=== PATIENT | male | born 1990 | race Caucasian/White ===

== ENCOUNTER 2016-12-30 21:07 | Emergency (ER) | payer OTHER ==
[~2016-12-30] VITALS: Ht 167.6 cm; Wt 73.0 kg
[2016-12-30 21:16] VITALS: BP 140/88; PULSE 99; RESP 16; TEMP 98.1; O2SAT 99
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
[2016-12-30] MEDS ORDERED: LIDOCAINE HCL 1% 50 ML VIAL INFIL ONE (21:30)
[2016-12-30] MEDS ORDERED: TETANUS/DIPHTHERIA TOXOID ADULT 0.5 ML VIAL IM ONE (21:30)
[2016-12-30 21:40] LABS: AUTOMATED NEUTROPHIL # 8.2 TH/MM3 (1.8-7.7); BASOPHIL % 0.4 % (0.0-2.0); EOSINOPHIL # 0.3 TH/MM3 (0-0.4); EOSINOPHIL % 2.7 % (0.0-4.0); HEMATOCRIT 46.3 % (39.0-51.0); HEMO FLAGS DIFF FINAL; LYMPH % 19.7 % (9.0-44.0); LYMPHOCYTE # 2.4 TH/MM3 (1.0-4.8); MEAN CELL VOLUME 88.3 FL (80.0-100.0); MEAN CORPUSCULAR HEMOGLOBIN 30.2 PG (27.0-34.0); MEAN CORPUSCULAR HGB CONC 34.2 % (32.0-36.0); MONO % 9.5 % (0.0-8.0); NEUT % 67.7 % (16.0-70.0); PLATELET COUNT 293 TH/MM3 (150-450); RED BLOOD COUNT 5.24 MIL/MM3 (4.50-5.90); RED CELL DISTRIBUTION WIDTH 13.8 % (11.6-17.2)
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
[2016-12-30 22:08] LABS: ACETAMINOPHEN LESS THAN 2.0 MCG/ML (10.0-30.0); ALKALINE PHOSPHATASE 79 U/L (45-117); ALT (GPT) 26 U/L (12-78); ANION GAP 8 MEQ/L (5-15); AST (GOT) 26 U/L (15-37); BLOOD UREA NITROGEN 13 MG/DL (7-18); CHLORIDE 105 MEQ/L (98-107); GLOMERULAR FILTRATION RATE 79 ML/MIN (>89); POTASSIUM 3.4 MEQ/L (3.5-5.1); SODIUM (NA) 138 MEQ/L (136-145); TOTAL BILIRUBIN ADULT 0.7 MG/DL (0.2-1.0)
[2016-12-30 22:09] LABS: ALCOHOL LESS THAN 3 MG/DL (0-5)
[2016-12-30 22:34] VITALS: BP 158/28; PULSE 68; RESP 16; TEMP 97.1; O2SAT 97
[2016-12-31 02:08] VITALS: BP 80/44; PULSE 48; RESP 18; TEMP 96.2; O2SAT 98
[2016-12-31 06:06] VITALS: BP 101/60; PULSE 85; RESP 18
[2016-12-31 09:05] VITALS: BP 101/60
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
--- NOTE | 2016-12-31 09:30 | PD ---
Physical Exam Time Seen by Provider: 09:[address] Barker has evaluated the patient, lifted regressed and the patient will be discharged for follow-up at [facility]. Data Data Last Documented VS Vital Signs Date Time Temp Pulse Resp B/P (MAP) Pulse Ox O2 Delivery O2 Flow Rate FiO2 12/31/16 09:05 85 18 101/60 (74) Blow-by 12/31/16 02:08 96.2 98 Orders Orders Complete Blood Count With Diff (12/30/16:) Comprehensive Metabolic Panel (12/30/16 21:) Psych Screen (12/30/16 21:) Drug Screen, Random Urine (12/30/16:) Alcohol (Ethanol) (12/30/16:) Salicylates (Aspirin) (12/30/16:) Tylenol (Acetaminophen) (12/30/16 21:) Femur (Ap & Lat/2vws) (12/30/16 ) Tetanus/Diphtheria Tox Adult (Tetanus/Di (12/30/16 21:30) Lidocaine 1% Inj (50 Ml) (Xylocaine 1% I (12/30/16 21:30) Diet Regular Basic (12/31/16 Breakfast) Labs Laboratory Tests Test 12/30/16 21:22 White Blood Count 12.0 TH/MM3 Red Blood Count 5.24 MIL/MM3 Hemoglobin 15.8 GM/DL Hematocrit 46.3 % Mean Corpuscular Volume 88.3 FL Mean Corpuscular Hemoglobin 30.2 PG Mean Corpuscular Hemoglobin Concent 34.2 % Red Cell Distribution Width 13.8 % Platelet Count 293 TH/MM3 Mean Platelet Volume 6.8 FL Neutrophils (%) (Auto) 67.7 % Lymphocytes (%) (Auto) 19.7 % Monocytes (%) (Auto) 9.5 % Eosinophils (%) (Auto) 2.7 % Basophils (%) (Auto) 0.4 % Neutrophils # (Auto) 8.2 TH/MM3 Lymphocytes # (Auto) 2.4 TH/MM3 Monocytes # (Auto) 1.1 TH/MM3 Eosinophils # (Auto) 0.3 TH/MM3 Basophils # (Auto) 0.0 TH/MM3 CBC Comment DIFF FINAL Differential Comment Blood Urea Nitrogen 13 MG/DL Creatinine 1.12 MG/DL Random Glucose 91 MG/DL Total Protein 7.9 GM/DL Albumin 4.3 GM/DL Calcium Level 9.3 MG/DL Alkaline Phosphatase 79 U/L Aspartate Amino Transf (AST/SGOT) 26 U/L Alanine Aminotransferase (ALT/SGPT) 26 U/L Total Bilirubin 0.7 MG/DL Sodium Level 138 MEQ/L Potassium Level 3.4 MEQ/L Chloride Level 105 MEQ/L Carbon Dioxide Level 25.0 MEQ/L Anion Gap 8 MEQ/L Estimat Glomerular Filtration Rate 79 ML/MIN Salicylates Level 2.2 MG/DL Urine Opiates Screen NEG Acetaminophen Level LESS THAN 2.0 MCG/ML Urine Barbiturates Screen NEG Urine Amphetamines Screen POS Urine Benzodiazepines Screen POS Urine Cocaine Screen NEG Urine Cannabinoids Screen POS Ethyl Alcohol Level LESS THAN 3 MG/DL MDM Supervised Visit with [facility]: No Narrative Course Dr. Barker has evaluated the patient, lifted the Juda act and the patient will be discharged home. Patient contracts safety. Denies suicidal or homicidal ideations. Patient will be provided community resource packet to [facility] for follow-up. Has friends and family for support. Patient is medically cleared for discharge. Diagnosis Primary Impression: Amphetamine abuse Additional Impressions: Benzodiazepine abuse Cannabis abuse Referrals: Primary Care Physician Patient Instructions: General Instructions, Polysubstance Abuse (ED) Departure Forms: Tests/Procedures Additional Instruction: Contract safety to your self and others Stop using drugs Follow-up with psychiatry Follow-up with primary care provider Follow-up with [facility] Return to the emergency department immediately with worsening of symptoms Med/Other Pt SpecificInfo: No Meds Exist/No RX given Scripts No Active Prescriptions or Reported Meds Disposition: 01 DISCHARGE HOME Condition: Stable Rosalind Jerez Dec 31, 2016 09:30
== END 2016-12-31 10:04 | disposition home or self-care (01) ==
LOC: NEPD 21:07 → NEPJ 12-31 10:04
DX: S71.111A Laceration without foreign body, right thigh, initial encounter (principal); S10.91XA Abrasion of unspecified part of neck, initial encounter; F15.10 Other stimulant abuse, uncomplicated; F12.10 Cannabis abuse, uncomplicated; Z72.0 Tobacco use; Z23 Encounter for immunization; Y28.8XXA Contact with other sharp object, undetermined intent, initial encounter
CPT/HCPCS: 12002; 73552; 80053; 80307; 85025; 90471; 90714

== ENCOUNTER 2017-01-01 08:47 | Emergency (ER) | payer OTHER ==
[~2017-01-01] VITALS: Ht 167.6 cm; Wt 75.0 kg
[2017-01-01 08:57] VITALS: BP 117/83; PULSE 89; RESP 20; TEMP 98.6; O2SAT 99
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
[2017-01-01] MEDS ORDERED: CLINDAMYCIN INJ 900 MG in SODIUM CHLORIDE 0.9% INJ 100 ML IV ONE (09:30)
[2017-01-01 09:47] LABS: AUTOMATED NEUTROPHIL # 8.6 TH/MM3 (1.8-7.7); BASOPHIL # 0.2 TH/MM3 (0-0.2); BASOPHIL % 1.9 % (0.0-2.0); EOSINOPHIL # 0.1 TH/MM3 (0-0.4); HEMATOCRIT 47.2 % (39.0-51.0); HEMO FLAGS DIFF FINAL; LYMPH % 18.1 % (9.0-44.0); LYMPHOCYTE # 2.2 TH/MM3 (1.0-4.8); MEAN CELL VOLUME 89.1 FL (80.0-100.0); MEAN CORPUSCULAR HEMOGLOBIN 30.3 PG (27.0-34.0); MONO % 7.7 % (0.0-8.0); NEUT % 71.3 % (16.0-70.0); PLATELET COUNT 265 TH/MM3 (150-450); RED CELL DISTRIBUTION WIDTH 13.6 % (11.6-17.2)
[2017-01-01 10:03] LABS: ALT (GPT) 28 U/L (12-78); ANION GAP 8 MEQ/L (5-15); BICARBONATE 24.3 MEQ/L (21.0-32.0); BLOOD UREA NITROGEN 18 MG/DL (7-18); CHLORIDE 108 MEQ/L (98-107); GLOMERULAR FILTRATION RATE 61 ML/MIN (>89); POTASSIUM 4.1 MEQ/L (3.5-5.1); SODIUM (NA) 140 MEQ/L (136-145)
[2017-01-01 11:14] LABS: ALKALINE PHOSPHATASE 82 U/L (45-117); AST (GOT) 30 U/L (15-37)
[2017-01-01 11:15] LABS: ACETAMINOPHEN LESS THAN 2.0 MCG/ML (10.0-30.0)
[2017-01-01 11:23] LABS: BACTERIA, URINE RARE /hpf; BLOOD, URINE TRACE (NEG); COMMENT (UR) CULTURE INDICATED; CULTURE IF INDICATED CULTURE INDICATED; GLUCOSE,URINE NEG (NEG); KETONE, URINE TRACE mg/dL (NEG); MUCUS URINE MANY /lpf (OCC); NITRITE,URINE NEG (NEG); URINE COLOR DARK-YELLOW (YELLW/STRAW)
--- NOTE | 2017-01-01 11:23 | RADRPT ---
EXAM DATE/TIME: 01/01/2017 11:01 [facility] COMPARISON: No previous studies available for comparison. INDICATIONS : Cephalgia. RADIATION DOSE: 31.60 CTDIvol (mGy) MEDICAL HISTORY : None SURGICAL HISTORY : None. ENCOUNTER: Initial ACUITY: 1 day PAIN SCALE: 4/10 LOCATION: Bilateral cranial TECHNIQUE: Multiple contiguous axial images were obtained of the head. Using automated exposure control and adj ustment of the mA and/or kV according to patient size, radiation dose was kept as low as reasonably a chievable to obtain optimal diagnostic quality images. DICOM format image data is available electro nically for review and comparison. FINDINGS: CEREBRUM: The ventricles are normal for age. No evidence of midline shift, mass lesion, hemorrhage or acute in farction. No extra-axial fluid collections are seen. POSTERIOR FOSSA: The cerebellum and brainstem are intact. The 4th ventricle is midline. The cerebellopontine angle i s unremarkable. EXTRACRANIAL: The visualized portion of the orbits is intact. Left maxillary sinusitis. SKULL: The calvaria is intact. No evidence of skull fracture. CONCLUSION: 1. Left maxillary sinusitis. 2. Otherwise negative Bernard Longo MD on January 01, 2017 at 11:20 Board Certified Radiologist. This report was verified electronically.
[2017-01-01] MEDS ORDERED: cefTRIAXone INJ 1,000 MG in SODIUM CHLORIDE 0.9% INJ 100 ML IV ONE (11:30)
[2017-01-01] MEDS ORDERED: metroNIDAZOLE 500 MG TAB PO ONE (11:30)
--- NOTE | 2017-01-01 11:50 | RADRPT ---
EXAM DATE/TIME: 01/01/2017 11:16 [facility] COMPARISON: No previous studies available for comparison. INDICATIONS : Right hand pain after punching the cement today. MEDICAL HISTORY : None. SURGICAL HISTORY : None. ENCOUNTER: Initial ACUITY: 1 day PAIN SCORE: 2/10 LOCATION: Right MCPJ. FINDINGS: Two view examination of the right hand demonstrates no soft tissue swelling, dislocation, or fracture . The joint spaces are maintained. Bony mineralization is normal. CONCLUSION: 1. No acute findings. Rizwan Gerard MD on January 01, 2017 at 11:47 Board Certified Radiologist. This report was verified electronically.
[2017-01-01 12:09] LABS: ALCOHOL LESS THAN 3 MG/DL (0-5)
[2017-01-01 13:00] VITALS: BP 117/58; PULSE 88; RESP 18; O2SAT 100
[2017-01-01 14:15] VITALS: BP 112/63; PULSE 80; RESP 18; O2SAT 100
[2017-01-01 17:24] VITALS: BP 111/62; PULSE 80; RESP 18; O2SAT 100
[2017-01-01 22:34] VITALS: BP 92/55; PULSE 74; RESP 18; O2SAT 99
[2017-01-02 06:39] VITALS: BP 98/58; PULSE 77; RESP 18; O2SAT 96
[2017-01-02 10:50] VITALS: BP 117/72; PULSE 77; RESP 18
== END 2017-01-02 15:36 ==
LOC: NEPD 08:47 → NEPJ 01-02 15:36
DX: N39.0 Urinary tract infection, site not specified (principal); Z72.0 Tobacco use
CPT/HCPCS: 70450; 73120; 80053; 80307; 81001; 85025; 87086; 96365; 96367; 99285; J0696

== ENCOUNTER 2017-07-30 16:14 | Inpatient (IN) | payer OTHER ==
[~2017-07-30] VITALS: Ht 167.6 cm; Wt 82.0 kg
[~2017-07-30 16:14] MED LIST: GLYCOPYRROLATE 1 MG/5 ML SYRINGE IV PUSH ONE; LACTATED RINGER'S 1000 ML INJ 1,000 ML IV ONE; LIDOCAINE HCL 1% PF 5 ML SYRINGE OTHER ONE; NEOSTIGMINE 5 MG/5 ML SYRINGE IV PUSH ONE; ONDANSETRON HCL 4 MG/2 ML VIAL IV ONE; PROPOFOL 200 MG/20 ML AMP IV ONE; ROCURONIUM INJ 50 MG/5 ML SYRINGE IV PUSH ONE; SUCCINYLCHOLINE CHLORIDE 100 MG/5 ML SYRINGE IV PUSH ONE; ceFAZolin INJ 1,000 MG VIAL IV ONE
[2017-07-30 16:48] VITALS: BP 127/69; PULSE 81; RESP 16; TEMP 98.2; O2SAT 96
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
--- NOTE | 2017-07-30 17:23 | RADRPT ---
EXAM DATE/TIME: 07/30/2017 17:01 [facility] COMPARISON: No previous studies available for comparison. INDICATIONS : Evaluate left distal forearm for foreign, cut with broken ceramic MEDICAL HISTORY : Stroke. SURGICAL HISTORY : None. ENCOUNTER: Initial ACUITY: 1 day PAIN SCORE: 3/10 LOCATION: Left Forearm FINDINGS: Two view examination of the left forearm demonstrates soft tissue deformity along the volar and later al surface of the mid to distal forearm.. There is no evidence of radiopaque foreign body. Underlying bony structures are intact. CONCLUSION: Soft tissue injury without evidence of radiopaque foreign body or acute bony abnormalities. Rommel Jean MD on July 30, 2017 at 17:19 Board Certified Radiologist. This report was verified electronically.
[2017-07-30] MEDS ORDERED: SODIUM CHLOR 0.9% 1000 ML INJ 1,000 ML IV ONE ×2 (17:30)
[2017-07-30 17:36] LABS: AUTOMATED NEUTROPHIL # 10.2 TH/MM3 (1.8-7.7); BASOPHIL % 0.3 % (0.0-2.0); EOSINOPHIL # 0.2 TH/MM3 (0-0.4); EOSINOPHIL % 1.3 % (0.0-4.0); HEMATOCRIT 46.6 % (39.0-51.0); HEMOGLOBIN 16.1 GM/DL (13.0-17.0); LYMPH % 14.1 % (9.0-44.0); LYMPHOCYTE # 1.9 TH/MM3 (1.0-4.8); MEAN CELL VOLUME 91.7 FL (80.0-100.0); MEAN CORPUSCULAR HEMOGLOBIN 31.6 PG (27.0-34.0); MEAN CORPUSCULAR HGB CONC 34.5 % (32.0-36.0); MEAN PLATELET VOLUME 7.5 FL (7.0-11.0); MONO % 7.2 % (0.0-8.0); NEUT % 77.1 % (16.0-70.0); PLATELET COUNT 186 TH/MM3 (150-450); RED BLOOD COUNT 5.09 MIL/MM3 (4.50-5.90); RED CELL DISTRIBUTION WIDTH 13.6 % (11.6-17.2); WHITE BLOOD COUNT 13.3 TH/MM3 (4.0-11.0)
[2017-07-30 17:54] LABS: PROTHROMBIN TIME - PATIENT 10.3 SEC (9.8-11.6)
[2017-07-30] MEDS ORDERED: BUPIVACAINE HCL PF 0.5% 30 ML VIAL ONE (18:05)
[2017-07-30] MEDS ORDERED: LIDOCAINE HCL 2% 50 ML VIAL ONE (18:05)
[2017-07-30] MEDS ORDERED: BACITRACIN TOP OINT 15 GM TUBE ONE (18:05)
[2017-07-30 18:06] LABS: ALKALINE PHOSPHATASE 56 U/L (45-117); TOTAL BILIRUBIN ADULT 0.5 MG/DL (0.2-1.0); TOTAL PROTEIN 7.9 GM/DL (6.4-8.2)
[2017-07-30] MEDS ORDERED: NEOMYCIN/POLYMYXIN 1 ML G.U. IRRIGANT ONE (18:06)
[2017-07-30 18:07] LABS: ALBUMIN 4.4 GM/DL (3.4-5.0); ALT (GPT) 40 U/L (12-78); AST (GOT) 34 U/L (15-37); BICARBONATE 25.6 MEQ/L (21.0-32.0); BLOOD UREA NITROGEN 20 MG/DL (7-18); CALCIUM 9.1 MG/DL (8.5-10.1); CHLORIDE 111 MEQ/L (98-107); CREATININE 0.93 MG/DL (0.60-1.30); GLOMERULAR FILTRATION RATE 97 ML/MIN (>89); GLUCOSE,RANDOM 85 MG/DL (74-106); SODIUM (NA) 142 MEQ/L (136-145)
[2017-07-30] MEDS ORDERED: SODIUM CHLORIDE 0.9% FLUSH 10 ML FLUSH IV FLUSH PRN ×2 (18:45)
[2017-07-30] MEDS ORDERED: LACTULOSE SYRUP 20 GM/30 ML CUP PO PRN (18:45)
[2017-07-30] MEDS ORDERED: MAGNESIUM HYDROXIDE SUSP 30 ML CUP PO PRN (18:45)
[2017-07-30] MEDS ORDERED: SENNOSIDES 8.6 MG TAB PO PRN (18:45)
[2017-07-30] MEDS ORDERED: TETANUS/DIPHTHERIA TOXOID ADULT 0.5 ML VIAL IM ONE (18:45)
[2017-07-30] MEDS ORDERED: METOCLOPRAMIDE HCL 10 MG/2 ML VIAL IV PUSH PRN (18:45)
[2017-07-30] MEDS ORDERED: BISACODYL 10 MG SUPP RECTAL PRN (18:45)
[2017-07-30] MEDS ORDERED: oxyCODONE/ACETAMINOPHEN 10 MG/325 MG TAB PO PRN (18:45)
[2017-07-30] MEDS ORDERED: MORPHINE SULFATE 2 MG/ML SYRINGE IV PUSH PRN (18:45)
[2017-07-30] MEDS ORDERED: oxyCODONE/ACETAMINOPHEN 5 MG/325 MG TAB PO PRN (18:45)
[2017-07-30] MEDS ORDERED: MORPHINE SULFATE 4 MG/ML INJ IV PUSH PRN ×2 (18:45)
[2017-07-30] MEDS ORDERED: ACETAMINOPHEN 325 MG TAB PO PRN ×2 (18:45)
[2017-07-30] MEDS ORDERED: NALOXONE HCL 0.4 MG/ML AMP IV PUSH PRN (18:45)
[2017-07-30] MEDS ORDERED: ONDANSETRON HCL 4 MG/2 ML VIAL IVP PRN (18:45)
[2017-07-30 19:08] VITALS: BP 120/64; PULSE 73; RESP 18; O2SAT 97
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
[2017-07-30] MEDS ORDERED: ceFAZolin INJ 1,000 MG VIAL IV ONE (20:00)
[2017-07-30] MEDS: DOCUSATE SODIUM 50 MG/SENNA 8.6 MG TAB PO SCH (21:00)
[2017-07-30] MEDS ORDERED: SODIUM CHLORIDE 0.9% FLUSH 10 ML FLUSH IV FLUSH SCH (21:00)
[2017-07-30] MEDS ORDERED: MIDAZOLAM HCL 2 MG/2 ML VIAL ONE (21:03)
[2017-07-30] MEDS ORDERED: DO NOT ADM ANY ANTICOAGULANT DRUGS PRN (21:41)
--- NOTE | 2017-07-30 21:44 | PD.OP ---
Operative Report Preoperative Diagnosis: (1) Laceration of left forearm with tendon involvement Postoperative Diagnosis: (1) Laceration of left forearm (2) laceration flexor carpi radialis left forearm (3) laceration palmaris longus left forearm (4) laceration flexor digitorum superficialis middle and ring fingers left forearm (5) laceration flexor carpi ulnaris left forearm Procedure: exploration, repair of laceration left forearm and repair of 1. laceration flexor carpi radialis 2. laceration palmaris longus 3. laceration flexor digitorum superficialis middle and ring fingers 4. laceration flexor carpi ulnaris Anesthesia: general Surgeon: Nguyễn Ortiz Cloth Tearer(s): pamela Operation and Findings: oblique laceration over the mid forearm measuring 8-9 cms complete laceration of FCR, PL, FDS middle and ring fingers partial laceration FCU intact ulnar artery and nerve intact median nerve Nguyễn Ortiz MD Jul 30, 2017 21:44
[2017-07-30] MEDS: SODIUM CHLORIDE 0.9% FLUSH 10 ML FLUSH IV FLUSH SCH (22:00)
[2017-07-30] MEDS ORDERED: ceFAZolin 2 GM/DEX PREMIX 50 ML IV ONE (22:00)
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
[2017-07-30] MEDS: SODIUM CHLOR 0.9% 1000 ML INJ 1,000 ML IV SCH (22:35)
[2017-07-30 23:30] VITALS: BP 129/73; PULSE 92; RESP 20; TEMP 97.6; O2SAT 98
[2017-07-31] MEDS: SODIUM CHLOR 0.9% 1000 ML INJ 1,000 ML IV SCH ×2 (04:29→07:36)
[2017-07-31 07:32] VITALS: BP 114/63; PULSE 66; RESP 20; TEMP 97.7; O2SAT 97
[2017-07-31] MEDS: SODIUM CHLORIDE 0.9% FLUSH 10 ML FLUSH IV FLUSH SCH ×2 (07:35→20:54)
[2017-07-31] MEDS: DOCUSATE SODIUM 50 MG/SENNA 8.6 MG TAB PO SCH ×2 (07:35→20:54)
[2017-07-31 07:42] LABS: AUTOMATED NEUTROPHIL # 6.6 TH/MM3 (1.8-7.7); BASOPHIL % 0.2 % (0.0-2.0); EOSINOPHIL # 0.2 TH/MM3 (0-0.4); EOSINOPHIL % 2.3 % (0.0-4.0); HEMATOCRIT 41.7 % (39.0-51.0); HEMOGLOBIN 14.3 GM/DL (13.0-17.0); LYMPH % 21.4 % (9.0-44.0); LYMPHOCYTE # 2.1 TH/MM3 (1.0-4.8); MEAN CELL VOLUME 92.6 FL (80.0-100.0); MEAN CORPUSCULAR HEMOGLOBIN 31.6 PG (27.0-34.0); MEAN CORPUSCULAR HGB CONC 34.1 % (32.0-36.0); MEAN PLATELET VOLUME 7.5 FL (7.0-11.0); MONO % 9.4 % (0.0-8.0); MONOCYTE # 0.9 TH/MM3 (0-0.9); NEUT % 66.7 % (16.0-70.0); PLATELET COUNT 161 TH/MM3 (150-450); RED BLOOD COUNT 4.51 MIL/MM3 (4.50-5.90); RED CELL DISTRIBUTION WIDTH 13.3 % (11.6-17.2); WHITE BLOOD COUNT 9.8 TH/MM3 (4.0-11.0)
[2017-07-31 08:15] LABS: ALBUMIN 3.3 GM/DL (3.4-5.0); ALKALINE PHOSPHATASE 48 U/L (45-117); ALT (GPT) 30 U/L (12-78); AST (GOT) 21 U/L (15-37); BICARBONATE 23.8 MEQ/L (21.0-32.0); BLOOD UREA NITROGEN 15 MG/DL (7-18); CALCIUM 8.2 MG/DL (8.5-10.1); CHLORIDE 111 MEQ/L (98-107); CREATININE 0.79 MG/DL (0.60-1.30); FREE T4 1.04 NG/DL (0.76-1.46); GLOMERULAR FILTRATION RATE 118 ML/MIN (>89); GLUCOSE,RANDOM 83 MG/DL (74-106); MAGNESIUM 1.9 MG/DL (1.5-2.5); PHOSPHORUS 3.3 MG/DL (2.5-4.9); SODIUM (NA) 143 MEQ/L (136-145); TOTAL BILIRUBIN ADULT 0.5 MG/DL (0.2-1.0); TOTAL PROTEIN 6.1 GM/DL (6.4-8.2)
[2017-07-31] MEDS ORDERED: ACETAMINOPHEN 500 MG CPLT PO PRN (10:45)
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
[2017-07-31] MEDS: oxyCODONE/ACETAMINOPHEN 7.5 MG/325 MG TAB PO PRN ×2 (11:30→17:20)
[2017-07-31 12:31] VITALS: BP_SYST 109; BP_SYST 133; BP_DIAS 62; BP_DIAS 79; PULSE 68; PULSE 98; RESP 20; TEMP 97.9; TEMP 98.3; O2SAT 97
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
[2017-07-31 15:44] VITALS: BP 103/51; PULSE 68; RESP 20; TEMP 98.2; O2SAT 97
--- NOTE | 2017-07-31 16:28 | HHI.PR ---
Subjective Remarks complains of mild pain denies any tingling or numbness complaint with limb elevation Objective Vital Signs Date Time Temp Pulse Resp B/P (MAP) Pulse Ox O2 Delivery O2 Flow Rate FiO2 07/31/17 15:44 98.2 68 20 103/51 (68) 97 07/31/17 12:31 98.3 98 20 133/79 (97) 97 07/31/17 07:32 97.7 66 20 114/63 (80) 97 07/30/17 23:30 97.6 92 20 129/73 (91) 98 07/30/17 23:00 98.0 82 20 132/65 (87) 98 Nasal Cannula 2 07/30/17 22:45 83 16 135/69 (91) 98 Nasal Cannula 2 07/30/17 22:30 84 26 128/68 (88) 95 Nasal Cannula 3 07/30/17 22:15 82 30 127/67 (87) 97 Nasal Cannula 3 07/30/17 22:00 77 26 116/62 (80) 97 Nasal Cannula 10 07/30/17 21:45 82 25 107/59 (75) 97 Nasal Cannula 10 07/30/17 21:41 98.0 88 20 108/56 (73) 97 Nasal Cannula 10 07/30/17 19:34 07/30/17 19:08 73 18 120/64 (82) 97 Room Air 07/30/17 16:48 98.2 81 16 127/69 (88) 96 I/O 07/30/17 07/30/17 07/30/17 07/31/17 07/31/17 07/31/17 07:00 15:00 23:00 07:00 15:00 23:00 Intake Total 1350 ml 800 ml 720 ml Output Total 20 ml 700 ml Balance 1330 ml 100 ml 720 ml Intake Oral 0 ml 800 ml 720 ml IV Total 1350 ml Output Urine Total 0 ml 700 ml Estimated Blood Loss 20 ml # Voids 2 # Bowel Movements 0 Left upper extremity: dressing and splint in place able to actively flex the fingers intact distal sensation Result Diagram: 07/31/17 0530 07/31/17 0530 Assessment and Plan Assessment and Plan 27 year old male s/p repair flexor tendons left forearm POD 1 Plan: keep the part elevated watch for distal circulation observation in medical floor for another day. appreciate Psychiatry input hand surgery will follow. Eathirafarhana,Nguyễn MD Jul 31, 2017 16:28
[2017-07-31 20:00] VITALS: BP 123/77; PULSE 77; RESP 18; TEMP 97.3; O2SAT 97
[2017-08-01] MEDS: SODIUM CHLOR 0.9% 1000 ML INJ 1,000 ML IV SCH ×3 (00:04→22:08)
[2017-08-01] MEDS: oxyCODONE/ACETAMINOPHEN 7.5 MG/325 MG TAB PO PRN ×3 (01:53→15:56)
[2017-08-01 08:20] VITALS: BP 109/64; PULSE 67; RESP 20; TEMP 97.8; O2SAT 97
[2017-08-01] MEDS: SODIUM CHLORIDE 0.9% FLUSH 10 ML FLUSH IV FLUSH SCH ×2 (09:00→22:07)
[2017-08-01] MEDS: DOCUSATE SODIUM 50 MG/SENNA 8.6 MG TAB PO SCH ×2 (09:25→21:00)
[2017-08-01 11:23] VITALS: BP 111/56; PULSE 62; RESP 20; TEMP 98.4; O2SAT 97
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
[2017-08-01 16:00] VITALS: BP 117/61; PULSE 71; RESP 20; TEMP 98.3; O2SAT 98
[2017-08-01 20:15] VITALS: BP 135/62; PULSE 66; RESP 18; TEMP 98; O2SAT 98
[2017-08-02 01:30] VITALS: BP 105/56; PULSE 58; RESP 17; TEMP 97.9; O2SAT 97
[2017-08-02] MEDS: oxyCODONE/ACETAMINOPHEN 7.5 MG/325 MG TAB PO PRN ×4 (01:34→22:00)
[2017-08-02 03:15] VITALS: BP 108/54; PULSE 50; RESP 17; TEMP 98.1; O2SAT 98
[2017-08-02] MEDS: SODIUM CHLOR 0.9% 1000 ML INJ 1,000 ML IV SCH (07:15)
[2017-08-02] MEDS: SODIUM CHLORIDE 0.9% FLUSH 10 ML FLUSH IV FLUSH SCH ×2 (09:00→21:00)
[2017-08-02] MEDS: DOCUSATE SODIUM 50 MG/SENNA 8.6 MG TAB PO SCH ×2 (09:00→20:51)
[2017-08-02 09:39] VITALS: BP 110/53; PULSE 54; RESP 20; TEMP 98.2; O2SAT 98
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
[2017-08-02 11:28] VITALS: BP 124/59; PULSE 62; RESP 20; TEMP 98.2; O2SAT 97
[2017-08-02] MEDS ORDERED: ZOFR4TAB3 SL (12:24)
[2017-08-02] MEDS ORDERED: OXYC1TAB35 PO (12:24)
[2017-08-02] MEDS ORDERED: ACET500T13 PO (12:24)
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
[2017-08-02 15:49] VITALS: BP 116/53; PULSE 50; RESP 20; TEMP 98.3; O2SAT 95
[2017-08-02 20:00] VITALS: BP 115/70; PULSE 78; RESP 16; TEMP 98.3; O2SAT 98
[2017-08-02] MEDS ORDERED: TETANUS/DIPHTHERIA TOXOID ADULT 0.5 ML VIAL IM ONE (22:00)
[2017-08-03] VITALS: BP 128/68; PULSE 67; RESP 18; TEMP 98.3; O2SAT 100
[2017-08-03 04:00] VITALS: BP 115/58; PULSE 51; RESP 16; TEMP 97.8; O2SAT 97
[2017-08-03] MEDS: oxyCODONE/ACETAMINOPHEN 7.5 MG/325 MG TAB PO PRN ×2 (05:37→12:53)
[2017-08-03] MEDS: DOCUSATE SODIUM 50 MG/SENNA 8.6 MG TAB PO SCH (07:30)
[2017-08-03] MEDS: SODIUM CHLORIDE 0.9% FLUSH 10 ML FLUSH IV FLUSH SCH (07:30)
[2017-08-03 08:42] VITALS: BP 112/53; PULSE 53; RESP 16; TEMP 98.3; O2SAT 98
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
[2017-08-03 12:00] VITALS: BP 121/74; PULSE 50; RESP 18; TEMP 98.1; O2SAT 98
[2017-08-03 14:00] VITALS: RESP 16
--- NOTE | 2017-08-03 16:12 | HHI.PR ---
Subjective Remarks complains of mild pain denies any tingling or numbness complaint with limb elevation Objective Vital Signs Date Time Temp Pulse Resp B/P (MAP) Pulse Ox O2 Delivery O2 Flow Rate FiO2 08/03/17 14:00 16 08/03/17 12:00 98.1 50 18 121/74 (90) 98 08/03/17 08:42 98.3 53 16 112/53 (72) 98 08/03/17 04:00 97.8 51 16 115/58 (77) 97 08/03/17 00:00 98.3 67 18 128/68 (88) 100 08/02/17 20:00 98.3 78 16 115/70 (85) 98 I/O 08/02/17 08/02/17 08/02/17 08/03/17 08/03/17 08/03/17 07:00 15:00 23:00 07:00 15:00 23:00 Intake Total 1500 ml 600 ml Balance 1500 ml 600 ml Intake Oral 1500 ml 600 ml # Voids 4 2 # Bowel Movements 0 1 left upper extremity: intact dressing and splint laceration site clean and dry intact finger cascade intact sensation and circulation Result Diagram: 07/31/17 0530 07/31/17 0530 Assessment and Plan Assessment and Plan 27 year old male s/p repair flexor tendons left forearm POD 4 Plan: dry dressing applied new dorsal block splint applied keeping the wrist in flexion and MP joints in flexion watch for distal circulation and sensation keep the splint on. staple removal in 2 weeks time. follow up in office in 2 weeks, call [phone] for appointment. Nguyễn Ortiz MD Aug 03, 2017 16:12
== END 2017-08-03 15:15 | DRG 501 ==
LOC: HOR 16:14 → NEDA 18:36 → HPAC 19:38 → N05A 23:24
PROVIDERS: ADMIT Hospitalist; ATTEND Hospitalist
PROC: 0LQ83ZZ Repair Left Hand Tendon, Percutaneous Approach (ICD-10-PCS; 2017-07-30)
PROC: 0LQ Tendons, Repair (ICD-10-PCS; principal; 2017-07-30 19:36)
DX: S56.222A Laceration of other flexor muscle, fascia and tendon at forearm level, left arm, initial encounter (principal); S46.122A Laceration of muscle, fascia and tendon of long head of biceps, left arm, initial encounter; D72.829 Elevated white blood cell count, unspecified; F31.9 Bipolar disorder, unspecified; S61.213A Laceration without foreign body of left middle finger without damage to nail, initial encounter; S56.126A Laceration of flexor muscle, fascia and tendon of left ring finger at forearm level, initial encounter; S56.124A Laceration of flexor muscle, fascia and tendon of left middle finger at forearm level, initial encounter; Z91.048 Other nonmedicinal substance allergy status; X79.XXXA Intentional self-harm by blunt object, initial encounter
CPT/HCPCS: 73090; 80053; 80307; 83036; 83735; 84100; 84439; 84443; 85025; 85610; 85730; 90714; 96374; J0330; J0690; J2250; J2270; J2405; J2710; J3010; J7030; J7120

== ENCOUNTER 2017-08-03 11:19 | Inpatient (IN) | payer SELFPAY ==
[~2017-08-03] VITALS: Ht 167.6 cm; Wt 81.2 kg
[~2017-08-03 11:19] MED LIST changes: +ACET500T13 PO; -GLYCOPYRROLATE 1 MG/5 ML SYRINGE IV PUSH ONE; -LACTATED RINGER'S 1000 ML INJ 1,000 ML IV ONE; -LIDOCAINE HCL 1% PF 5 ML SYRINGE OTHER ONE; -NEOSTIGMINE 5 MG/5 ML SYRINGE IV PUSH ONE; -ONDANSETRON HCL 4 MG/2 ML VIAL IV ONE; +OXYC1TAB35 PO; -PROPOFOL 200 MG/20 ML AMP IV ONE; -ROCURONIUM INJ 50 MG/5 ML SYRINGE IV PUSH ONE; -SUCCINYLCHOLINE CHLORIDE 100 MG/5 ML SYRINGE IV PUSH ONE; +ZOFR4TAB3 SL; -ceFAZolin INJ 1,000 MG VIAL IV ONE
[2017-08-03 16:28] VITALS: BP 131/64; PULSE 67; RESP 16; TEMP 97.8; O2SAT 98
[2017-08-03] MEDS ORDERED: LORazepam 2 MG/ML VIAL IM PRN ×2 (20:45)
[2017-08-03] MEDS ORDERED: ACETAMINOPHEN 500 MG CPLT PO PRN (20:45)
[2017-08-03] MEDS ORDERED: ONDANSETRON ODT 4 MG TAB SL PRN (20:45)
[2017-08-03] MEDS ORDERED: ALUMINUM/MAGNESIUM/SIMETH 30 ML CUP PO PRN (20:45)
[2017-08-03] MEDS ORDERED: ACETAMINOPHEN 325 MG TAB PO PRN (20:45)
[2017-08-03] MEDS ORDERED: MAGNESIUM HYDROXIDE SUSP 30 ML CUP PO PRN (20:45)
[2017-08-03] MEDS: oxyCODONE/ACETAMINOPHEN 7.5 MG/325 MG TAB PO PRN (21:54)
[2017-08-04] MEDS: oxyCODONE/ACETAMINOPHEN 7.5 MG/325 MG TAB PO PRN ×3 (05:47→19:51)
[2017-08-04 06:07] VITALS: BP 105/49; PULSE 68; RESP 16; TEMP 97.6; O2SAT 97
[2017-08-04] MEDS: NICOTINE 21 MG/24 HR PATCH T-DERMAL SCH (10:04)
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
[2017-08-04] MEDS: LORazepam 0.5 MG TAB PO PRN (12:53)
[2017-08-04 14:48] LABS: BICARBONATE 27.7 MEQ/L (21.0-32.0); BLOOD UREA NITROGEN 21 MG/DL (7-18); CALCIUM 9.2 MG/DL (8.5-10.1); CHLORIDE 103 MEQ/L (98-107); CREATININE 1.01 MG/DL (0.60-1.30); GLOMERULAR FILTRATION RATE 89 ML/MIN (>89); GLUCOSE,RANDOM 104 MG/DL (74-106); SODIUM (NA) 138 MEQ/L (136-145)
[2017-08-04 14:49] LABS: CHOLESTEROL 108 MG/DL (120-200); TRIGLYCERIDES 111 MG/DL (42-150)
[2017-08-04 14:51] LABS: CHOLESTEROL/ HDL RATIO 2.57 RATIO; HDL CHOLESTEROL 41.9 MG/DL (40.0-60.0); LDL CHOLESTEROL 44 MG/DL (0-99)
[2017-08-04 16:02] LABS: HEMOGLOBIN A1C 4.8 % (4.3-6.0)
[2017-08-04 18:13] VITALS: BP 124/63; PULSE 66; RESP 16; TEMP 97.8; O2SAT 98
[2017-08-04] MEDS: REMOVE OLD PATCH T-DERMAL SCH (19:48)
[2017-08-04] MEDS ORDERED: QUEtiapine FUMARATE 25 MG TAB PO SCH (21:00)
[2017-08-04] MEDS ORDERED: diphenhydrAMINE HCL 50 MG CAP PO PRN (21:00)
[2017-08-05] MEDS: oxyCODONE/ACETAMINOPHEN 7.5 MG/325 MG TAB PO PRN ×3 (04:48→19:13)
[2017-08-05] MEDS: LORazepam 0.5 MG TAB PO PRN ×2 (04:48→17:04)
[2017-08-05 04:59] VITALS: BP 108/52; PULSE 51; RESP 16; TEMP 98; O2SAT 98
[2017-08-05] MEDS: NICOTINE 21 MG/24 HR PATCH T-DERMAL SCH (09:00)
[2017-08-05] MEDS: REMOVE OLD PATCH T-DERMAL SCH (11:44)
--- NOTE | 2017-08-05 11:46 | HHI.PYPN ---
Subjective Remarks Patient seen for follow up; chart reviewed. Discussion nursing staff reported the patient sleeping well. Patient was found in the patient, speech, hospital bed noted B, cooperative. Patient states he is they have been sleeping well, feeling somewhat "groggy" in the morning, her mood being positive. Patient states being upset after being advised by his parents that he will not go and take his [place] patient has it would cost more to retrieve it and what the value of the charges. Patient denies feeling sad or depressed, continues to have minimization no recent suicide attempts, denies any suicide ideations. Patient states having spoken to his girlfriend and that "things are going okay" but that he will no longer be living in the apartment which she was sharing with his girlfriend and plans on returning back to live with his parents Review of Systems Except as stated in HPI: all other systems reviewed are Neg Mental Status Examination Appearance: Appropriate Consciousness: Alert Orientation: x4 Motor Activity: Normal gait Speech: Unremarkable Language: Adequate Fund of Knowledge: Inadequate Attention and Concentration: Adequate Memory: Unremarkable Mood: Good Affect: Other (Guarded) Thought Process & Associations: Intact, Linear Thought Content: Appropriate Hallucination Type: None Delusion Type: None Suicidal Ideation: Yes (Denies today) Suicidal Plan: No Suicidal Intention: No Homicidal Ideation: No Homicidal Plan: No Homicidal Intention: No Insight: Fair Judgment: Impulsive Results Labs Labs reviewed Test 08/04/17 13:37 Blood Urea Nitrogen 21 MG/DL Creatinine 1.01 MG/DL Random Glucose 104 MG/DL Calcium Level 9.2 MG/DL Sodium Level 138 MEQ/L Potassium Level 3.7 MEQ/L Chloride Level 103 MEQ/L Carbon Dioxide Level 27.7 MEQ/L Anion Gap 7 MEQ/L Estimat Glomerular Filtration Rate 89 ML/MIN Hemoglobin A1c 4.8 % Triglycerides Level 111 MG/DL Cholesterol Level 108 MG/DL LDL Cholesterol 44 MG/DL HDL Cholesterol 41.9 MG/DL Cholesterol/HDL Ratio 2.57 RATIO Vitals/IOs Vital Signs Date Time Temp Pulse Resp B/P (MAP) Pulse Ox O2 Delivery O2 Flow Rate FiO2 08/05/17 04:59 98.0 51 16 108/52 (70) 98 Intake and Output 08/05/17 08/05/17 08/06/17 08:00 16:00 00:00 Intake Total 720 ml Balance 720 ml Assessment & Plan Problem List: (1) Adjustment disorder with mixed disturbance of emotions and conduct ICD Codes: F43.25 - Adjustment disorder with mixed disturbance of emotions and conduct Assessment & Plan Patient this time continues to minimize recent suicide attempt, review limited insight into the dangerousness of his recent act. We will continue to titrate quetiapine 200 mg p.o. at bedtime with a target dose of 300-400 mg for mood stabilization. Continue to monitor with behavior. Discharge planning in progress. Justification for Cont. Inpt. At risk for further decompensation if at lower level of care Discharge Planning To return back to [facility] residence. Bradley Goldstein MD Aug 05, 2017 11:46
[2017-08-05 18:19] VITALS: BP_SYST 119; BP_SYST 181; BP_DIAS 17; BP_DIAS 90; PULSE 75; RESP 17; TEMP 98.3; O2SAT 97
[2017-08-05] MEDS ORDERED: QUEtiapine FUMARATE 100 MG TAB PO SCH (21:00)
[2017-08-05] MEDS ORDERED: HALOPERIDOL LACTATE 5 MG/ML AMP ONE (21:28)
[2017-08-05] MEDS ORDERED: HALOPERIDOL LACTATE 5 MG/ML AMP IM ONE (21:45)
[2017-08-05] MEDS ORDERED: LORazepam 2 MG/ML VIAL IM ONE (21:45)
[2017-08-06 05:57] VITALS: BP 126/60; PULSE 70; RESP 18; TEMP 98.6; O2SAT 99
[2017-08-06] MEDS: NICOTINE 21 MG/24 HR PATCH T-DERMAL SCH (09:00)
[2017-08-06] MEDS: oxyCODONE/ACETAMINOPHEN 7.5 MG/325 MG TAB PO PRN ×2 (10:14→16:48)
[2017-08-06 17:02] VITALS: BP 122/57; PULSE 72; RESP 17; TEMP 98; O2SAT 99
[2017-08-06] MEDS: REMOVE OLD PATCH T-DERMAL SCH (20:36)
[2017-08-06] MEDS ORDERED: QUEtiapine FUMARATE 100 MG TAB PO SCH (21:00)
[2017-08-07] MEDS: oxyCODONE/ACETAMINOPHEN 7.5 MG/325 MG TAB PO PRN ×4 (03:14→16:28)
[2017-08-07 05:55] VITALS: BP 100/57; PULSE 75; RESP 16; TEMP 97.9; O2SAT 100
--- NOTE | 2017-08-07 08:38 | HHI.PYPN ---
Subjective Remarks LATE ENTRY FOR 08/06/17 -patient seen for follow-up, chart reviewed. Discussion nursing staff reported the patient less evening after having played basketball during activity at returned reporting having some pain in the arm which he recently had surgery and it was demanding for her to be seen immediately and when nursing staff was trying to redirect patient patient immediately became very agitated and had broken off over the signs from the hallway and attempted to cut his arm with it which patient was provided with ETO and transferred to the [facility] for rehabilitation unit for further observation for safety and put on one-to-one. Patient was found lying hospital bed noted be somewhat irritable. Patient states that he had gone outside to play basketball and hurt his arm was worried that he had reinjured it and was demanding to to have it seen. Patient had elaborate on his behavior of attempting to cut his arm again and was dismissing the conversation. Patient states that his mood has been "pretty good" reported sleeping well. Patient states that he would like to be able to the hospital but understands because of his recent behavior will require further stay. Patient also recalls having been counseled with therapist about possibility of going to residential treatment which he disagrees with stating that he needs to have his freedom and will agree only to outpatient follow-up. Patient reports having spoke with his parents last night stating that they want him to be home soon. Patient also mentions to be a visited by his girlfriend who had concluded that she no longer wanted him in his life and was going to issue a restraining order against him which she states was fine with. Review of Systems Except as stated in HPI: all other systems reviewed are Neg Mental Status Examination Appearance: Appropriate Consciousness: Alert Orientation: x4 Motor Activity: Normal gait Speech: Unremarkable Language: Adequate Fund of Knowledge: Inadequate Attention and Concentration: Adequate Memory: Unremarkable Mood: Good Affect: Irritable Thought Process & Associations: Intact, Linear Thought Content: Appropriate Hallucination Type: None Delusion Type: None Suicidal Ideation: Yes (Denies today) Suicidal Plan: No Suicidal Intention: No Homicidal Ideation: No Homicidal Plan: No Homicidal Intention: No Insight: Fair Judgment: Impulsive Results Vitals/IOs Vital Signs Date Time Temp Pulse Resp B/P (MAP) Pulse Ox O2 Delivery O2 Flow Rate FiO2 08/07/17 05:55 97.9 75 16 100/57 (71) 100 Assessment & Plan Problem List: (1) Adjustment disorder with mixed disturbance of emotions and conduct ICD Codes: F43.25 - Adjustment disorder with mixed disturbance of emotions and conduct Assessment & Plan Patient at this time continues with very poor impulse control as seen recently with his behavior which she had required ETO and transferred to a more acute unit for observation and put on one-to-one for safety. We will continue to titrate quetiapine to 200 mg p.o. at bedtime for mood stabilization. Continue monitor mood and behavior. Discharge planning in progress. Justification for Cont. Inpt. At risk for further decompensation if at lower level of care Bradley Goldstein MD Aug 07, 2017 08:37
[2017-08-07] MEDS: NICOTINE 21 MG/24 HR PATCH T-DERMAL SCH (09:00)
[2017-08-07] MEDS: LORazepam 0.5 MG TAB PO PRN ×2 (09:17→21:09)
[2017-08-07 17:36] VITALS: BP 98/54; PULSE 73; RESP 18; TEMP 98.2; O2SAT 97
--- NOTE | 2017-08-07 18:33 | HHI.PYPN ---
Subjective Remarks Patient seen for follow, chart reviewed. Discussion nursing staff reported the patient with no behavioral services since yesterday has been calm and cooperative and compliant with treatment. Patient was found in the room noted B , cooperative. Patient states that he is feeling "wonderful" reported sleeping well with no difficulty eating or drinking or bowel movement. Patient reports tolerating medication well with no adverse drug reactions. Patient states that he was visited by his ex-girlfriend yesterday and that the will not be returning back together in a relationship and that she will not be requesting a restraining order. He states that they work together but will not continue further contact outside of work. Patient states also have been visited by his father which he had raised concerns about patient relapse into substance use and wanting him to engage in rehabilitation program. Patient states that he is willing to do outpatient rehabilitation program but did not want to consider engaging in residential treatment. Review of Systems Except as stated in HPI: all other systems reviewed are Neg Mental Status Examination Appearance: Appropriate Consciousness: Alert Orientation: x4 Motor Activity: Normal gait Speech: Unremarkable Language: Adequate Fund of Knowledge: Inadequate Attention and Concentration: Adequate Memory: Unremarkable Mood: Good Affect: Irritable Thought Process & Associations: Intact, Linear Thought Content: Appropriate Hallucination Type: None Delusion Type: None Suicidal Ideation: Yes (Denies today) Suicidal Plan: No Suicidal Intention: No Homicidal Ideation: No Homicidal Plan: No Homicidal Intention: No Insight: Fair Judgment: Impulsive Results Vitals/IOs Vital Signs Date Time Temp Pulse Resp B/P (MAP) Pulse Ox O2 Delivery O2 Flow Rate FiO2 08/07/17 17:36 98.2 73 18 98/54 (69) 97 Assessment & Plan Problem List: (1) Adjustment disorder with mixed disturbance of emotions and conduct ICD Codes: F43.25 - Adjustment disorder with mixed disturbance of emotions and conduct Assessment & Plan Patient at this time continues to have limited insight into impact of his substance use and continues to be in contemplation stage of engaging in rehabilitation for substance use. We will continue to titrate quetiapine for mood stabilization. Increase Seroquel to 300 mg p.o. at bedtime. Continue to monitor mood and behavior. Discharge planning in progress. Justification for Cont. Inpt. At risk for decompensation at lower level care. Bradley Goldstein MD Aug 07, 2017 18:33
[2017-08-07] MEDS: QUEtiapine FUMARATE 100 MG TAB PO SCH (20:25)
[2017-08-07] MEDS ORDERED: QUEtiapine FUMARATE 100 MG TAB PO SCH (21:00)
[2017-08-07] MEDS: REMOVE OLD PATCH T-DERMAL SCH (21:00)
[2017-08-08 05:56] VITALS: BP 99/56; PULSE 71; RESP 18; TEMP 97
[2017-08-08] MEDS: NICOTINE 21 MG/24 HR PATCH T-DERMAL SCH (07:59)
[2017-08-08] MEDS: oxyCODONE/ACETAMINOPHEN 7.5 MG/325 MG TAB PO PRN ×3 (07:59→22:10)
[2017-08-08] MEDS: REMOVE OLD PATCH T-DERMAL SCH (08:52)
[2017-08-08] MEDS: LORazepam 0.5 MG TAB PO PRN (12:15)
--- NOTE | 2017-08-08 13:58 | HHI.PYPN ---
Subjective Remarks Reviewed electronic medical record discussed case with staff. Follow-up was conducted in the day room. Patient reports that he is feeling better and had an "excellent" sleep he reports that his appetite has been good. He has been participating in groups and outside activity. Patient requesting to be moved to 2600 unit however, due to his recent him to 2700 unit I informed him that he would have to stay for at least another day. Patient was observed running in the handley several times. His speech is rapid. His mood is good and his affect is expansive. Mental Status Examination Appearance: Appropriate Consciousness: Alert Orientation: x4 Motor Activity: Normal gait Speech: Unremarkable Language: Adequate Fund of Knowledge: Inadequate Attention and Concentration: Adequate Memory: Unremarkable Mood: Good Affect: Irritable Thought Process & Associations: Intact, Linear Thought Content: Appropriate Hallucination Type: None Delusion Type: None Suicidal Ideation: Yes (Denies today) Suicidal Plan: No Suicidal Intention: No Homicidal Ideation: No Homicidal Plan: No Homicidal Intention: No Insight: Fair Judgment: Impulsive Results Vitals/IOs Vital Signs Date Time Temp Pulse Resp B/P (MAP) Pulse Ox O2 Delivery O2 Flow Rate FiO2 08/08/17 05:56 97.0 71 18 99/56 (70) 08/07/17 17:36 97 Assessment & Plan Problem List: (1) Adjustment disorder with mixed disturbance of emotions and conduct ICD Codes: F43.25 - Adjustment disorder with mixed disturbance of emotions and conduct Assessment & Plan Estimated LOS: Continue with treatment plan as ordered. Patient psychiatrist will reevaluate on Thursday. Days Justification for Cont. Inpt. Moving this patient to a lower level of care would likely result in decompensation. Tawanna Keith Aug 08, 2017 13:58
[2017-08-08 17:47] VITALS: BP 122/56; PULSE 66; RESP 18; TEMP 98.7; O2SAT 100
[2017-08-08] MEDS: LORazepam 1 MG TAB PO PRN (20:55)
[2017-08-08] MEDS: QUEtiapine FUMARATE 100 MG TAB PO SCH (20:55)
[2017-08-09 06:09] VITALS: BP 110/54; PULSE 62; RESP 18; TEMP 97.1; O2SAT 99
[2017-08-09] MEDS: NICOTINE 21 MG/24 HR PATCH T-DERMAL SCH (07:11)
[2017-08-09] MEDS: oxyCODONE/ACETAMINOPHEN 7.5 MG/325 MG TAB PO PRN ×3 (08:04→21:40)
--- NOTE | 2017-08-09 09:56 | HHI.PYPN ---
Subjective Remarks Reviewed electronic medical record and discussed case with staff. Follow-up was conducted in the hallway. Patient reports that he slept well his appetite has been good. Staff reports he has been compliant with medication. Patient hopeful for discharge on Thursday. He denies feeling suicidal, homicidal, having auditory or visual hallucinations. His mood still seems somewhat effusive. Mental Status Examination Appearance: Appropriate Consciousness: Alert Orientation: x4 Motor Activity: Normal gait Speech: Unremarkable Language: Adequate Fund of Knowledge: Inadequate Attention and Concentration: Adequate Memory: Unremarkable Mood: Good Affect: Irritable Thought Process & Associations: Intact, Linear Thought Content: Appropriate Hallucination Type: None Delusion Type: None Suicidal Ideation: Yes (Denies today) Suicidal Plan: No Suicidal Intention: No Homicidal Ideation: No Homicidal Plan: No Homicidal Intention: No Insight: Fair Judgment: Impulsive Results Vitals/IOs Vital Signs Date Time Temp Pulse Resp B/P (MAP) Pulse Ox O2 Delivery O2 Flow Rate FiO2 08/09/17 06:09 97.1 62 18 110/54 (72) 99 Assessment & Plan Problem List: (1) Adjustment disorder with mixed disturbance of emotions and conduct ICD Codes: F43.25 - Adjustment disorder with mixed disturbance of emotions and conduct Assessment & Plan Estimated LOS Continue with current treatment plan. Attending psychiatrist will reassess tomorrow. Discharge planning has begun. Days Justification for Cont. Inpt. Moving this patient to a lower level of care would likely result in a decompensation. Tawanna Keith Aug 09, 2017 09:56
[2017-08-09] MEDS: LORazepam 1 MG TAB PO PRN (10:33)
[2017-08-09 17:29] VITALS: BP 120/61; PULSE 77; RESP 17; TEMP 98.7; O2SAT 98
[2017-08-09] MEDS: REMOVE OLD PATCH T-DERMAL SCH (21:00)
[2017-08-09] MEDS: QUEtiapine FUMARATE 100 MG TAB PO SCH (21:40)
[2017-08-10 06:19] VITALS: BP 94/55; PULSE 50; RESP 17; TEMP 98.8; O2SAT 100
[2017-08-10] MEDS: oxyCODONE/ACETAMINOPHEN 7.5 MG/325 MG TAB PO PRN (08:58)
[2017-08-10] MEDS: NICOTINE 21 MG/24 HR PATCH T-DERMAL SCH (08:58)
--- NOTE | 2017-08-10 09:27 | PD.TTN ---
Patient Problems 1. Discharge planning 2. Medication compliance 3. Knowledge deficit 4. Lack of coping skills Progress Toward Goals Provider Present: Dr. Rachel Goldstein Provider Input: Pt meets criteria for DC, provider wants to verify that there are no guns in the home Psychiatric Counselors Present: Abelardo Malcolm Jr., [facility] Psych Therapist Input: Counselor spoke to pt's mother. Mother verified there are no guns in the home. Group Spec/RT/OT/WU Input: Attending groups Abelardo Malcolm Jr, [employer] ADMINISTRATOR Aug 10, 2017 09:27
[2017-08-10] MEDS: LORazepam 0.5 MG TAB PO PRN (12:36)
[2017-08-10] MEDS ORDERED: QUET400T PO (13:36)
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
== END 2017-08-10 16:31 | disposition home or self-care (01) | DRG 882 ==
LOC: H4EA 15:40 → H260 08-05 12:10 → H270 08-05 21:39
PROVIDERS: ADMIT Student in an Organized Health Care Education/Training Program; ATTEND Student in an Organized Health Care Education/Training Program
DX: F43.25 Adjustment disorder with mixed disturbance of emotions and conduct (principal); F15.21 Other stimulant dependence, in remission; F12.90 Cannabis use, unspecified, uncomplicated; Z91.5 Personal history of self-harm; Z79.891 Long term (current) use of opiate analgesic; Z79.899 Other long term (current) drug therapy
CPT/HCPCS: 80048; 80061; 83036; J1630; J2060

== ENCOUNTER 2017-08-14 16:49 | Emergency (ER) | payer SELFPAY ==
[~2017-08-14] VITALS: Ht 167.6 cm; Wt 76.0 kg
[~2017-08-14 16:49] MED LIST changes: +QUET400T PO
[2017-08-14 17:05] VITALS: BP 132/63; PULSE 79; RESP 17; TEMP 98.4; O2SAT 98
--- NOTE | 2017-08-14 17:31 | PD ---
HPI Chief Complaint: Wound/Suture/Staple Re-Check Time Seen by Provider: 17:16 Travel History International Travel<30 days: No Contact w/Intl Traveler<30days: No Traveled to known affect area: No History of Present Illness HPI Patient comes comes to the emergency department requesting staple removal from his left forearm that was placed 2 weeks ago. Patient states that he lost his follow-up information and decided to come back to the emergency department to have them removed. Patient denies any complaints or concerns with sutures. Patient reports full range of motion and sensation distally. Reports some numbing sensation around the wound still without radiation. Severity mild. PFSH Past Medical History Bipolar Disorder: Yes Anxiety: No Depression: No Cancer: No Cardiovascular Problems: No Diminished Hearing: No Endocrine: No GERD: Yes Genitourinary: No Headaches: No Immune Disorder: No Musculoskeletal: Yes Neurologic: No Psychiatric: Yes (Past suicidal attempts) Reproductive: Yes Respiratory: No Seizures: No Past Surgical History Abdominal Surgery: No Cardiac Surgery: No Ear Surgery: No Endocrine Surgery: No Eye Surgery: No Genitourinary Surgery: No Gynecologic Surgery: No Oral Surgery: Yes (TOOTH SX) Thoracic Surgery: No Social History Alcohol Use: Yes Tobacco Use: Yes Substance Use: Yes (9 months ago, methamphetamine IV; marijuana daily.) Allergies-Medications (Allergen,Severity, Reaction): Coded Allergies: cat dander (Verified Allergy, Unknown, ITCHING, 07/30/17) Reported Meds & Prescriptions Reported Meds & Active Scripts Active Quetiapine (Quetiapine Fumarate) 400 Mg Tab 400 Mg PO HS Zofran Odt (Ondansetron Odt) 4 Mg Tab 4 Mg SL Q6HR PRN APAP Extra Strength (Acetaminophen) 500 Mg Tab 500 Mg PO Q4H PRN Oxycodon-Acetaminophen 7.5-325 (Oxycodone HCl/Acetaminophen) 7.5 Mg-325 Mg Tablet 1 Tab PO Q6H PRN Review of Systems Except as stated in HPI: all other systems reviewed are Neg Physical Exam Narrative GENERAL: Well-developed, well nourished, in no acute distress, and non-ill appearing. SKIN: Focused skin assessment warm and dry. Lucina noted over volar aspect of left forearm that are directly intact. Is afebrile, nonerythematous, without drainage. No crepitus. Wound is well-healing. Neurovascular intact distally. HEAD: Atraumatic. Normocephalic. EYES: Pupils equal and round. EOMI. No scleral icterus. No injection or drainage. ENT: No nasal bleeding or discharge. Mucous membranes pink and moist. NECK: Trachea midline. Supple. No nuclear rigidity. CARDIOVASCULAR: Radial pulses 2+, intact, equal bilaterally. Capillary refill less than 2 seconds. RESPIRATORY: No accessory muscle use. No respiratory distress. MUSCULOSKELETAL: No obvious deformities. No clubbing. No cyanosis. No edema. Full range of motion. Wrist: FROM and equal BL with passive flexion, extension , and pronation/supination. Capillary refill less than 2 seconds distal to injury and equal BL. FROM distal to injury and equal BL. Strength distal to injury equal BL. NV intact distal to injury. Flexion and extension of thumb equal BL. Equal strength and movement with abduction/adductions of BL fingers. House Principal strength equal BL. No tenderness to the anatomical snuffbox. NEUROLOGICAL: Awake and alert. No obvious cranial nerve deficits. Motor grossly within normal limits. Normal speech. PSYCHIATRIC: Appropriate mood and affect; insight and judgment normal. Data Data Last Documented VS Vital Signs Date Time Temp Pulse Resp B/P (MAP) Pulse Ox O2 Delivery O2 Flow Rate FiO2 08/14/17 17:05 98.4 79 17 132/63 (86) 98 Orders Orders Ed Discharge Order (08/14/17 17:31) [facility] Medical Decision Making Medical Screen Exam Complete: Yes Emergency Medical Condition: Yes Medical Record Reviewed: Yes Differential Diagnosis Wound check, wound infection, suture removal Narrative Course Patient in no obvious distress upon re-evaluation. Discussed patient with Dr. Tate, who recommended having the lucina removed and patient can still follow up with surgeon outpatient. Any questions/concerns in reference to patient diagnosis/condition discussed and clarified prior to patient's discharge. Reinforced sheer importance of close follow up with hand surgeon for reevaluation. Instructed patient to return to ED immediately, if symptoms return /worsen. Patient showed understanding of above instructions. Further instructions and recommendations were detailed in discharge paperwork. Patient ambulated without difficulty out of ED at discharge. Procedures Procedure Narrative Verbal consent was obtained. 14 lucina were easily removed without difficulty. Patient tolerated procedure well. There is no complications. Diagnosis Primary Impression: Encounter for wound re-check Additional Impression: Encounter for staple removal Referrals: Nguyễn Ortiz MD Patient Instructions: General Instructions, Stitches Removal (GEN) Additional Instructions: Follow-up must follow-up with Dr. Ortiz as soon as possible for evaluation. Call his office to make an appointment. Keep wound dry and clean as possible using soap and water. Use Neosporin to promote healing. Return to the emergency department if symptoms get worse. Disposition: 01 DISCHARGE HOME Condition: Stable Shyam Alexis August 14, 2017 17:30
== END 2017-08-14 18:04 | disposition home or self-care (01) ==
LOC: NEPE 16:49
DX: Z48.02 Encounter for removal of sutures (principal); F31.9 Bipolar disorder, unspecified; K21.9 Gastro-esophageal reflux disease without esophagitis; F15.11 Other stimulant abuse, in remission; F12.11 Cannabis abuse, in remission; Z72.0 Tobacco use; Z79.899 Other long term (current) drug therapy
CPT/HCPCS: 99281